=== PATIENT | female | born 1975 | race Caucasian/White ===

== ENCOUNTER 2020-08-06 14:03 | Outpatient (CLI) | payer BC ==
[~2020-08-06 14:03] MED LIST: Iopamidol 370 76% 100 ML VIAL ONE
--- NOTE | 2020-08-06 15:51 | CT ---
CT ABDOMEN AND PELVIS WITH AND WITHOUT IV CONTRAST: 08/06/20 Postcontrast images performed with portal venous and delayed venous phase. INDICATIONS: Hematuria. Comparison made to a CT abdomen and pelvis from 06/25/19. FINDINGS: Lung bases clear. Review of noncontrast images show no evidence of urinary tract calculus. The ureters are normal calib er. There is no hydronephrosis. Postcontrast images show symmetric enhancement to both kidneys. No renal mass lesion identified. Margarita yed images show contrast secretion into the collecting structures. Urinary bladder is unremarkable. The liver, spleen, and pancreas unremarkable. Adrenal glands normal. Bowel loops appear unremarkable. Images through the pelvis show evidence of hysterectomy. The cervix is mildly prominent and there is a Nabothian cyst at the cervix. There is a right pelvic cyst consistent with a right ovarian cyst. This measures 4 cm. On the prior e xam, a right ovarian cyst was present which measured approximately 3 cm at that time. The previously described anterior abdominal wall hernia at the umbilicus appears to have been repaire d. Postoperative changes at this location is apparent today. No residual hernia. IMPRESSION: 1. No evidence of urinary tract calculus or obstruction. No renal mass identified. 2. Evidence of a right ovarian cyst which is slightly larger than on the prior study as noted ab ove. POS: [facility]
== END 2020-08-06 14:04 | disposition home or self-care (01) ==
LOC: BICCT 14:03
PROVIDERS: ATTEND Urology
DX: R31.0 Gross hematuria (principal); N83.201 Unspecified ovarian cyst, right side
CPT/HCPCS: 74178; Q9967